=== PATIENT | female | born 1990 | race Caucasian/White ===

== ENCOUNTER 2021-03-02 18:39 | Emergency (ER) | payer BC ==
[~2021-03-02] VITALS: Ht 170.2 cm; Wt 75.0 kg
[2021-03-02] MEDS ORDERED: IBUPROFEN 600MG TABLET PO STA (19:51)
[2021-03-02 20:18] LABS: BASOPHILS % 0.6 % (0.0-2.0); EOSINOPHILS % 0.8 % (0.0-5.0); HEMATOCRIT. 40.3 % (36.0-48.0); HEMOGLOBIN. 14.3 g/dL (12.0-16.0); LYMPHOCYTES % 23.9 % (20.0-50.0); MEAN CORPUSCULAR HEMOGLOBIN 31.2 pg (28.0-32.0); MEAN CORPUSCULAR VOLUME 87.8 fL (81.0-99.0); MONOCYTES % 5.6 % (2.0-8.0); NEUTROPHILS % 69.1 % (40.0-76.0); PLATELET 323 x1000/uL (130-400); RED BLOOD CELL COUNT 4.59 mill/uL (4.2-5.4); RED CELL DISTRIBUTION WIDTH 13.1 % (11.6-14.6)
[2021-03-02 20:25] LABS: CHLORIDE 108 mEq/L (98-107)
[2021-03-02 22:39] VITALS: BP 135/92
== END 2021-03-02 22:41 | disposition home or self-care (01) ==
LOC: ER 18:39
DX: R07.89 Other chest pain (principal)
CPT/HCPCS: 36415; 71045; 80053; 85025; 93005; 99285

== ENCOUNTER 2022-05-09 13:57 | Emergency (ER) | payer BC ==
[~2022-05-09] VITALS: Ht 167.6 cm; Wt 73.0 kg
[2022-05-09 17:17] LABS: BASOPHILS % 0.6 % (0.0-2.0); EOSINOPHILS % 0.8 % (0.0-5.0); HEMATOCRIT. 45.1 % (36.0-48.0); HEMOGLOBIN. 15.3 g/dL (12.0-16.0); LYMPHOCYTES % 25.3 % (20.0-50.0); MEAN CORPUSCULAR HEMOGLOBIN 29.8 pg (28.0-32.0); MEAN CORPUSCULAR VOLUME 87.7 fL (81.0-99.0); MEAN PLATELET VOLUME 8.4 fl (7.4-10.4); NEUTROPHILS % 68.3 % (40.0-76.0); PLATELET 294 x1000/uL (130-400); RED BLOOD CELL COUNT 5.14 mill/uL (4.2-5.4); RED CELL DISTRIBUTION WIDTH 13.4 % (11.6-14.6)
[2022-05-09 17:25] LABS: CHLORIDE 105 mEq/L (98-107)
[2022-05-09 17:40] LABS: HCG SCREEN NEGATIVE
[2022-05-09 18:00] VITALS: BP 126/83
== END 2022-05-09 18:24 | disposition home or self-care (01) ==
LOC: ER 13:57
DX: R06.02 Shortness of breath (principal); F17.290 Nicotine dependence, other tobacco product, uncomplicated; Z71.6 Tobacco abuse counseling
CPT/HCPCS: 36415; 71045; 80053; 83880; 84484; 84703; 85025; 93005; 99285